=== PATIENT | female | born 1965 | race African-American/Black ===

== ENCOUNTER → 2017-02-16 | Outpatient (CLI) | payer OTHER ==
[~2017-02-16] VITALS: Ht 190.5 cm; Wt 88.9 kg
[~2017-02-16] MED LIST: LIDOCAINE 1% / SOD BICARB 8.4% 20 ML VIAL. IJ ONE; LIDOCAINE 2%/EPI 1:100,000 20 ML VIAL. IJ ONE; LORA0.5T PO; LOSA50TA6 PO; METO100T11 PO; NAPR220T70 PO
[2017-02-16 08:38] VITALS: BP 154/105
== END | disposition home or self-care (01) ==
LOC: EDUNIT# 08:00 → MAMMO 08:06
PROVIDERS: ATTEND Physician Assistant Surgical
DX: R92.8 Other abnormal and inconclusive findings on diagnostic imaging of breast (principal)
CPT/HCPCS: 19085; 77022; C1713; G0206; 77065